=== PATIENT | male | born 1930 | race Caucasian/White ===

== ENCOUNTER 2017-11-19 13:49 | Emergency (ER) | payer MEDICARE, OTHER ==
[2017-11-19 14:02] VITALS: BP 120/58
--- NOTE | 2017-11-19 14:13 | EDM.PDOC ---
ED HPI GENERAL MEDICAL PROBLEM - General Chief Complaint: Chest Pain Stated Complaint: CHEST PAIN Time Seen by Provider: 11/19/17 14:08 Source of Information: Reports: Patient, Family (spouse) History Limitations: Reports: No Limitations - History of Present Illness INITIAL COMMENTS - FREE TEXT/NARRATIVE: 87-year-old male presents to the ED at the request of the walk-in clinic from [facility]. Patient was sent over when he presented to the clinic with a one -week history of left posterior chest wall pain under his shoulder blade on the left side. States pain is from most part but dull and achy discomfort but occasionally become sharp and stabbing. Denies cough or sputum production. Doesn 't feel any more short of breath than normal. Denies any hemoptysis. 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 He's had 4 stents placed in the past as well as one angioplasty many years ago without stenting. Last July he underwent coronary bypass surgery quadruple bypass. No falls or injuries to his ribs. No rashes apparent. Onset: Gradual Onset Date: 11/11/17 (Developed the pain about a week ago and it's been hanging on. Kept him awake a good portion of last night and that's the primary reason he sought medical care today.) Duration: Day(s):, Intermittent, Waxing/Waning Location: Reports: Chest (Left posterior chest under his shoulder blade.) Quality: Reports: Ache, Sharp (Occasionally sharp pain. Not necessarily with breathing.) Severity: Moderate (Rates it as a 1 and can be is from is a 5 at times) Improves with: Reports: Rest Worsens with: Reports: Movement (Movement of the left upper extremity and) Context: Denies: Activity, Lifting, Sick Contact, Trauma, Other Associated Symptoms: Reports: Chest Pain. Denies: Confusion, Cough (Left posterior chest pain), cough w sputum, Fever/Chills, Headaches, Loss of Appetite , Malaise, Rash, Seizure, Shortness of Breath, Syncope Treatments PRODUCTION ASSOCIATE: Reports: Other (see below) (None.) Chest Pain Score (Numeric/FACES): 5 - Related Data Allergies Allergy/AdvReac Type Severity Reaction Status Date / Time Penicillins Allergy Swelling Verified 11/19/17 14:01 Home Meds: Home Meds Carvedilol [Coreg] 3.125 mg PO BID 08/28/14 [History] Simvastatin [Zocor] 80 mg PO BEDTIME 08/28/14 [History] Tamsulosin [Flomax] 0.4 mg PO BID 08/28/14 [History] Docusate Sodium [Colace] 100 mg PO BID 10/20/14 [History] Aspirin 81 mg PO BEDTIME #30 tab.chew 10/27/14 [Rx] Bicalutamide [Casodex] 50 mg PO DAILY 09/06/16 [History] Cholecalciferol (Vitamin D3) [Vitamin D3] 1,000 unit PO DAILY 09/06/16 [History] Flaxseed Oil 1,000 mg PO BID 09/06/16 [History] [place]-3/DHA/Epa/Fish Oil [[place]-3 Fish Oil 1,000 MG Sfgl] 2,000 mg PO DAILY 02/11 [History] Ca Carbonate/Vitamin D3/Vit K [Citracal Soft Chew] 1 tab PO DAILY 11/19/17 [ History] Furosemide [Lasix] 20 mg PO DAILY #30 tab 11/19/17 [Rx] Losartan [Cozaar] 25 mg PO DAILY 11/19/17 [History] Past Medical History Cardiovascular History: Reports: Bypass (Quadruple bypass carried out in July 2016.), CAD, High Cholesterol, Hypertension, [place] (2. He's had both an inferior wall and anteroseptal myocardial infarction in the past.), PTCA, Stents (Has [address] for stents) Respiratory History: Reports: COPD (Mild COPD. Not on oxygen at home.) Gastrointestinal History: Reports: Chronic Constipation (Occasional: Problems with constipation) Genitourinary History: Reports: BPH, Prostate Disorder (Known prostate cancer. Nocturia usually 2) Musculoskeletal History: Reports: Back Pain, Chronic (Mild chronic low back pain. Sometimes shoulders and neck as well.), Osteoarthritis, Osteoporosis - Past Surgical History Other Cardiovascular Surgeries/Procedures: PCI in 2005 Other Male Surgeries/Procedures: on flomax Other Musculoskeletal Surgeries/Procedures:: s/p right hip arthroplasty. Social & Family History - Tobacco Use Smoking Status *Q: Unknown Ever Smoked - Caffeine Use Caffeine Use: Reports: Coffee - Recreational Drug Use Recreational Drug Use: No - Living Situation & Occupation Living situation: Reports: Occupation: Retired ED ROS GENERAL - Review of Systems Review Of Systems: See Below Constitutional: Denies: Fever, Chills, Malaise, Weakness, Fatigue, Decreased Appetite, Weight Loss HEENT: Reports: Glasses. Denies: Hearing Loss Respiratory: Denies: Shortness of Breath, Wheezing, Pleuritic Chest Pain, Cough Cardiovascular: Reports: Chest Pain (Posterior left chest pain inferior to the shoulder blade), Blood Pressure Problem, Dyspnea on Exertion, Edema (Mild in his lower extremities. Usually a mild ring around his socks.). Denies: Claudication, Lightheadedness, Orthopnea, Palpitations Endocrine: Reports: No Symptoms GI/Abdominal: Reports: Constipation : Reports: Frequency, Other (Nocturia usually 2. Known prostate cancer currently on anti-androgenic medication.) Musculoskeletal: Reports: Neck Pain (Intermittently intermittently), Shoulder Pain, Back Pain Skin: Reports: No Symptoms Neurological: Reports: No Symptoms Psychiatric: Reports: No Symptoms Hematologic/Lymphatic: Reports: No Symptoms Immunologic: Reports: No Symptoms ED EXAM, GENERAL - Physical Exam Exam: See Below Exam Limited By: No Limitations General Appearance: Alert, WD/WN, No Apparent Distress, Other (Vital signs reveal mild tachypnea 20 with O2 sats of 96% on room air.) Eye Exam: Bilateral Eye: Normal Inspection Neck: Normal Inspection, Supple, Non-Tender, Full Range of Motion. No: Lymphadenopathy (L), Lymphadenopathy (R) Respiratory/Chest: No Respiratory Distress, No Accessory Muscle Use, Rales (He has rales both bases. Perhaps a little worse on the left as compared to the right.). No: Respiratory Distress, Rhonchi, Wheezing, Stridor, Pleural Rub, Accessory Muscle Use Cardiovascular: Normal Peripheral Pulses, Regular Rate, Rhythm, No Gallop, No Murmur, Other (Well-healed midline sternotomy incision.) Peripheral Pulses: 1+: Carotid (L), Carotid (R), Brachial (L), Brachial (R) GI/Abdominal: Normal Bowel Sounds, Soft, Non-Tender, No Organomegaly, No Abnormal Bruit, No Mass, Pelvis Stable Back Exam: Normal Inspection, Decreased Range of Motion. No: CVA Tenderness (L) , CVA Tenderness (R) Extremities: Pedal Edema (He has trace pedal edema in both lower extremities to the ankles .) Neurological: Alert, Oriented, CN II-XII Intact, Normal Cognition, Normal Gait Psychiatric: Normal Affect, Normal Mood Skin Exam: Warm, Dry, Intact, Normal Color, No Rash EKG INTERPRETATION EKG Date: 11/19/17 Time: 13:57 Rhythm: NSR Rate (Beats/Min): 65 Gabbs: LAD-Left Gabbs Deviation (-50.) P-Wave: Present (With first-degree AV block) QRS: LBBB (He has Q-wave in V1 and near Q waves V2 V3 V4 compatible with an old anteroseptal myocardial infarction. Similarly there are Q waves in 3 and aVF compatible with an old inferior wall myocardial infarction. He has a left ventricular hypertrophy pattern. Incomplete left bundle branch block) ST-T: Other (Diffuse repolarization abnormality.) QT: Prolonged (Mildly prolonged) EKG Interpretation Comments: Abnormal ECG Course - Vital Signs Last Recorded V/S: Last Vital Signs Temp 35.8 C 11/19/17 13:58 Pulse 65 11/19/17 13:58 Resp 20 11/19/17 13:58 BP 120/58 L 11/19/17 14:02 Pulse Ox 96 11/19/17 13:58 - Orders/Labs/Meds Orders: Active Orders 24 hr Category Date Time Status EKG Documentation Completion [RC] ASDIRECTED Care 11/19/17 14:01 Active EKG Documentation Completion [RC] STAT Care 11/19/17 14:08 Active Chest 1V Frontal [CR] Stat Exams 11/19/17 14:08 Taken Furosemide [Lasix] Med 11/19/17 15:21 Once 20 mg PO ONETIME ONE EKG 12 Lead [EK] Stat Ther 11/19/17 14:01 Ordered Labs: Laboratory Tests 11/19/17 11/19/17 11/19/17 Range/Units 14:25 14:25 14:25 WBC 4.29 (4.23-9.07) K/mm3 RBC 3.92 L (4.63-6.08) M/mm3 Hgb 11.2 L (13.7-17.5) gm/L Hct 33.9 L (40.1-51.0) % MCV 86.5 (79.0-92.2) fl MCH 28.6 (25.7-32.2) pg MCHC 33.0 (32.2-35.5) g/dl RDW Std Deviation 39.9 (35.1-43.9) fL Plt Count 173 (163-337) K/mm3 MPV 9.9 (9.4-12.3) fl Neutrophils % (Manual) 52 (40-60) % Band Neutrophils % 0 (0-10) % Lymphocytes % (Manual) 36 (20-40) % Atypical Lymphs % 0 % Monocytes % (Manual) 9 (2-10) % Eosinophils % (Manual) 3 (0.8-7.0) % Basophils % (Manual) 0 L (0.2-1.2) Platelet Estimate Adequate Plt Morphology Comment Normal RBC Morph Comment Normal PT 11.0 (9.5-12.1) SECONDS INR 1.01 D-Dimer, Quantitative (0.19-0.50) mg/L Sodium 136 (136-145) mEq/L Potassium 4.4 (3.5-5.1) mEq/L Chloride 105 (98-107) mEq/L Carbon Dioxide 26 (21-32) mEq/L Anion Gap 9.4 (5-15) BUN 31 H (7-18) mg/dL Creatinine 1.5 H (0.7-1.3) mg/dL Est Cr Clr Drug Dosing 36.95 mL/min Estimated GFR (MDRD) 44 (>60) mL/min BUN/Creatinine Ratio 20.7 H (14-18) Glucose 123 H (83-115) mg/dL Calcium 9.0 (8.5-10.1) mg/dL Magnesium 2.3 (1.8-2.4) mg/dl Total Bilirubin 0.4 (0.2-1.0) mg/dL AST 22 (15-37) U/L ALT 18 (16-63) U/L Alkaline Phosphatase 72 (46-116) U/L CK-MB (CK-2) 1.2 (0-3.6) ng/ml Troponin I < 0.017 (0.00-0.056) ng/mL C-Reactive Protein < 0.2 (<1.0) mg/dL NT-Pro-B Natriuret Pep (0-450) pg/mL Total Protein 7.0 (6.4-8.2) g/dl Albumin 3.8 (3.4-5.0) g/dl Globulin 3.2 gm/dL Albumin/Globulin Ratio 1.2 (1-2) 11/19/17 11/19/17 Range/Units 14:25 14:25 WBC (4.23-9.07) K/mm3 RBC (4.63-6.08) M/mm3 Hgb (13.7-17.5) gm/L Hct (40.1-51.0) % MCV (79.0-92.2) fl MCH (25.7-32.2) pg MCHC (32.2-35.5) g/dl RDW Std Deviation (35.1-43.9) fL Plt Count (163-337) K/mm3 MPV (9.4-12.3) fl Neutrophils % (Manual) (40-60) % Band Neutrophils % (0-10) % Lymphocytes % (Manual) (20-40) % Atypical Lymphs % % Monocytes % (Manual) (2-10) % Eosinophils % (Manual) (0.8-7.0) % Basophils % (Manual) (0.2-1.2) Platelet Estimate Plt Morphology Comment RBC Morph Comment PT (9.5-12.1) SECONDS INR D-Dimer, Quantitative 0.87 H (0.19-0.50) mg/L Sodium (136-145) mEq/L Potassium (3.5-5.1) mEq/L Chloride (98-107) mEq/L Carbon Dioxide (21-32) mEq/L Anion Gap (5-15) BUN (7-18) mg/dL Creatinine (0.7-1.3) mg/dL Est Cr Clr Drug Dosing mL/min Estimated GFR (MDRD) (>60) mL/min BUN/Creatinine Ratio (14-18) Glucose (83-115) mg/dL Calcium (8.5-10.1) mg/dL Magnesium (1.8-2.4) mg/dl Total Bilirubin (0.2-1.0) mg/dL AST (15-37) U/L ALT (16-63) U/L Alkaline Phosphatase (46-116) U/L CK-MB (CK-2) (0-3.6) ng/ml Troponin I (0.00-0.056) ng/mL C-Reactive Protein (<1.0) mg/dL NT-Pro-B Natriuret Pep 509 H (0-450) pg/mL Total Protein (6.4-8.2) g/dl Albumin (3.4-5.0) g/dl Globulin gm/dL Albumin/Globulin Ratio (1-2) - Radiology Interpretation Free Text/Narrative:: 87-year-old male presents to the ED at the request of [facility] walk-in clinic. Patient presented there with a one-week history of left posterior chest pain. Pain is inferior to his left shoulder blade and states it's deep and hurts occasionally with deep breathing but mostly worsened by movement of his left upper extremity and shoulder. Patient has a strong family history of coronary disease and a strong history of coronary disease himself having had both inferior wall and anteroseptal wall myocardial infarction. His current for coronary stents and had quadruple bypass performed last in July. Currently on aspirin 81 mg daily only no antiplatelet inhibitors. Examination reveals crackles in both bases. Minimal JVD. No pain on palpation of the chest wall no rib head subluxation. Plan routine labs including cardiac markers and d-dimer. One view chest x-ray to be obtained. Note ECG reveals evidence of an old inferior wall and anteroseptal myocardial infarction with left ventricular hypertrophy pattern. No evidence of acute ischemic change. - Re-Assessments/Exams Free Text/Narrative Re-Assessment/Exam: 11/19/17 15:05 d-dimer came back at 0.87 which is appropriate for his age. X- ray portably reveals moderate cardiomegaly. Mild thoracic aortic ectasia appreciated. Lungs are mildly hyperinflated but diaphragms are not flattened. Costophrenic angles appear to be free of fluid. There is a diffuse mild vascular congestion pattern. 11/19/17 15:16 Labs are back revealing a normal white count at 4.29 with normal differential of 52% neutrophils and no bands. Hemoglobin is mildly decreased at 11.2 with hematocrit of 33.9. MCV is normal at 86.5. Platelet count is 173,000. PT is 11.0 with an INR 1.01. D-dimer 0.87. This would be considered normal for his age. Sodium is 136. Potassium is 4.4. Cord is 104 bicarbonate 26. And a gap is 9.4. B1 is mildly elevated at 31 with a creatinine of 1.5. Glucose is 123. Calcium normal at 9.0 magnesium normal at 2.3. Liver function is normal. Cardiac markers show CK-MB fraction 1.2 with a troponin I of less than 0.017. C-reactive protein is less than 0.2. BNP is mildly elevated at 509. 11/19/17 15:23 patient has mild congestive failure and I will put him on Lasix 20 mg once daily with first tablet provided in the ED. I'm not convinced that that's the cause of his left posterior chest pain. The history suggests that is more musculoskeletal in origin and likely arthritic changes in his thoracic spine to be causing his pain. He will use or continued to use Motrin on a when necessary basis as needed for pain. If pain gets worse or fails to improve over the next week to 10 days he will follow-up with his personal care physician Dr. Barnes. He was thoracic spine would be indicated at that time. Departure - Departure Time of Disposition: 15:24 Disposition: Home, Self-Care 01 Condition: Fair Clinical Impression: Mild congestive heart failure Left-sided thoracic back pain Qualifiers: Chronicity: acute Qualified Code(s): M54.6 - Pain in thoracic spine Prescriptions: Furosemide [Lasix] 20 mg PO DAILY #30 tab Referrals: Radha Barnes MD [Primary Care Provider] - Forms: ED Department Discharge Additional Instructions: Evaluation the emergency room today in regards to left-sided posterior chest pain for the better part of a week. The only positive finding on examination was a few crackles or evidence of fluid in the bases of both lungs on auscultation. Chest x-ray looked pretty good with mild enlargement of your heart but no significant accumulation of fluid . The visualized portions of the chest wall while the ribs and sternum look to be normal. There are some degenerative arthritic changes present in your mid thoracic spine which I believe is likely causing a good deal of your current pain in her left back. Lab work shows no evidence of blood clot along and certainly no evidence of heart related illness in terms of heart attack etc. it. It did reveal that there is a accumulation of fluid in your lungs but only mildly. However it is enough to take a water pill Lasix 20 mg once daily every morning to keep the fluid from building up in her lungs. I do not believe however that is the sole cause of your current left-sided back pain. I still agree with you that it's okay to take Motrin when necessary or as needed for back pain in the think is Musca skeletal in origin. If pain is still present in 7-10 days time and I would just follow-up with Dr. Barnes for further imaging of your - My Orders Last 24 Hours: My Active Orders 11/19/17 14:01 EKG Documentation Completion [RC] ASDIRECTED EKG 12 Lead [EK] Stat 11/19/17 14:08 EKG Documentation Completion [RC] STAT Chest 1V Frontal [CR] Stat 11/19/17 15:21 Furosemide [Lasix] 20 mg PO ONETIME ONE - Assessment/Plan Last 24 Hours: My Active Orders 11/19/17 14:01 EKG Documentation Completion [RC] ASDIRECTED EKG 12 Lead [EK] Stat 11/19/17 14:08 EKG Documentation Completion [RC] STAT Chest 1V Frontal [CR] Stat 11/19/17 15:21 Furosemide [Lasix] 20 mg PO ONETIME ONE
[2017-11-19] MEDS ORDERED: Furosemide 20 MG Tab PO ONE (15:21)
--- NOTE | 2017-11-20 07:39 | CR ---
Chest: Portable view of the chest was obtained. Comparison: Prior chest x-ray of 10/24/14. Heart is slightly enlarged. Tortuous thoracic aorta is seen. Sternotomy is noted for CABG. Lungs are clear with no acute parenchymal change. Bony structures are grossly intact. Impression: 1. Nothing acute is seen on portable chest x-ray. Incidental findings as noted above. Diagnostic code #2
== END 2017-11-19 15:41 | disposition home or self-care (01) ==
LOC: JD.ED 13:49
DX: I11.0 Hypertensive heart disease with heart failure (principal); I50.9 Heart failure, unspecified; M54.6 Pain in thoracic spine; Z95.5 Presence of coronary angioplasty implant and graft; Z95.1 Presence of aortocoronary bypass graft
CPT/HCPCS: 36415; 71045; 80053; 82553; 83735; 83880; 84484; 85007; 85027; 85379; 85610; 86140; 93005; 99285; A9270; 93010

== ENCOUNTER 2019-09-01 06:52 | Emergency (ER) | payer MEDICARE, OTHER ==
[2019-09-01 07:02] VITALS: BP 129/62; PULSE 61
[2019-09-01] MEDS ORDERED: Nitroglycerin/D5W 25 MG/250 ML BOTTLE IV SCH (07:15)
[2019-09-01] MEDS ORDERED: Sodium Chloride 0.9% 1,000 ML IV SCH (07:15)
--- NOTE | 2019-09-01 07:17 | EDM.PDOC ---
ED HPI GENERAL MEDICAL PROBLEM - General Chief Complaint: Chest Pain Stated Complaint: CHEST PAIN Time Seen by Provider: 09/01/19 07:02 Source of Information: Reports: Patient History Limitations: Reports: No Limitations - History of Present Illness INITIAL COMMENTS - FREE TEXT/NARRATIVE: 88-year-old male presents to the ED with diffuse right chest wall pain radiating to his right shoulder and right superior posterior right shoulder in the distribution of the trapezius muscle. Pain also radiates down the right arm towards the wrist. Pain radiates through to his back and infrascapular area. No pleuritic component of pain it is described as a deep aching pressure discomfort. It is been present since 0200 hrs. this morning. Patient has a history of coronary disease having had triple bypass carried out 3 years ago. He had a previous angioplasty with no stent placement many years ago. To my knowledge she is not taking any anticoagulants. He took 4 aspirins this mo rning. He has not taken any nitroglycerin. He denies cough or sputum production. Denies fever or chills. No recent changes to any of his medications. Associated diaphoresis and mild nausea without any vomiting. Currently rates his pain as 2 out of 10. States at home it was about 5 out of 10. Onset: Today, Sudden Onset Date: 09/01/19 Onset Time: 02:00 Duration: Hour(s): Location: Reports: Chest (Right chest primarily upper rating towards the right shoulder and upper back and mid back under the shoulder blade.), Back (Pain in the distribution of the trapezius muscle superior shoulder and down the back inferior to the right shoulder blade. Or under the shoulder blade.), Upper Extremity, Right (And radiates into his right shoulder and down the right arm towards his hand.) Quality: Reports: Ache, Pressure (Deep aching pressure discomfort), Other (No pleuritic pain) Severity: Moderate Improves with: Reports: None Worsens with: Reports: None Context: Denies: Activity, Exercise, Lifting, Sick Contact, Trauma, Other Associated Symptoms: Reports: Chest Pain. Denies: No Other Symptoms, Confusion, Cough, cough w sputum, Diaphoresis, Fever/Chills, Headaches, Loss of Appetite, Malaise, Nausea/Vomiting, Rash, Seizure, Shortness of Breath, Syncope, Weakness Treatments [employer]: Reports: Aspirin Right Shoulder Pain Score (Numeric/FACES): 2 - Related Data Allergies Allergy/AdvReac Type Severity Reaction Status Date / Time Penicillins Allergy Severe Swelling Verified 09/01/19 07:02 Home Meds: Home Meds Carvedilol [Coreg] 3.125 mg PO BID 08/28/14 [History] Simvastatin [Zocor] 80 mg PO BEDTIME 08/28/14 [History] Bicalutamide [Casodex] 50 mg PO DAILY 09/06/16 [History] Cholecalciferol (Vitamin D3) [Vitamin D3] 1,000 unit PO DAILY 09/06/16 [History] Flaxseed Oil 1,000 mg PO BID 09/06/16 [History] [place]-3/DHA/Epa/Fish Oil [[place]-3 Fish Oil 1,000 MG Sfgl] 2,000 mg PO DAILY 09/06/16 [History] Calcium Carb/Vitamin D3/Vit K1 [Citracal Soft Chew] 1 tab PO DAILY 11/19/17 [History] Losartan [Cozaar] 25 mg PO DAILY 11/19/17 [History] Aspirin 325 mg PO BEDTIME 08/23/18 [History] Past Medical History HEENT History: Reports: Impaired Vision Cardiovascular History: Reports: Bypass, CAD, High Cholesterol, Hypertension, [place], PTCA, Stents Respiratory History: Reports: COPD Gastrointestinal History: Reports: Chronic Constipation Genitourinary History: Reports: BPH, Prostate Disorder Musculoskeletal History: Reports: Back Pain, Chronic, Osteoarthritis, Osteoporosis Neurological History: Reports: None Psychiatric History: Reports: None Endocrine/Metabolic History: Reports: None Hematologic History: Reports: None Immunologic History: Reports: None Oncologic (Cancer) History: Reports: Prostate Dermatologic History: Reports: None - Infectious Disease History Infectious Disease History: Reports: None - Past Surgical History Head Surgeries/Procedures: Reports: None Other Cardiovascular Surgeries/Procedures: PCI in 2006 Other Male Surgeries/Procedures: on flomax Other Musculoskeletal Surgeries/Procedures:: s/p right hip arthroplasty. Other Oncologic Surgeries/Procedures: Pt currently is being treated for prostate cancer. Pt states he had a few injections, and now it is being treated with pills. 08/23/18. Social & Family History - Family History Family Medical History: Noncontributory - Tobacco Use Smoking Status *Q: Never Smoker - Caffeine Use Caffeine Use: Reports: None - Recreational Drug Use Recreational Drug Use: No - Living Situation & Occupation Living situation: Reports: Occupation: Retired ED ROS GENERAL - Review of Systems Review Of Systems: See Below Constitutional: Reports: Malaise, Weakness, Fatigue. Denies: Fever, Chills, Decreased Appetite, Weight Loss HEENT: Reports: Glasses Respiratory: Denies: Shortness of Breath, Wheezing, Pleuritic Chest Pain, Cough, Sputum, Hemoptysis Cardiovascular: Reports: Chest Pain (Right chest pain primarily upper anterior chest. Rating through to the back in the distribution of the superior shoulder and trapezius muscle as well as under the shoulder blade and then down the right arm towards his right), Blood Pressure Problem. Denies: Claudication ( wrist.), Dyspnea on Exertion, Edema, Lightheadedness, Orthopnea, Palpitations Endocrine: Reports: Fatigue GI/Abdominal: Reports: No Symptoms : Reports: Frequency, Other Musculoskeletal: Reports: Back Pain, Joint Pain Skin: Reports: No Symptoms (Knees hips neck and shoulders at times.) Neurological: Reports: No Symptoms Psychiatric: Reports: No Symptoms Hematologic/Lymphatic: Reports: No Symptoms Immunologic: Reports: No Symptoms ED EXAM, GENERAL - Physical Exam Exam: See Below Exam Limited By: No Limitations General Appearance: Alert, WD/WN, No Apparent Distress, Other (Vital signs show temperature 36.2. Pulse 61 and sinus respiratory 17 BP 129/62 sats are 91% on room air. 94% on my last recording) Eye Exam: Bilateral Eye: Normal Inspection, Periorbital Changes Neck: Normal Inspection, Limited Range of Motion (Crepitus on lateral rotation.), Tender Lateral. No: Carotid Bruit, Lymphadenopathy (L), Lymphadenopathy (R) Respiratory/Chest: No Respiratory Distress (Bilateral cervical neck tenderness on palpation.), Lungs Clear, Normal Breath Sounds, No Accessory Muscle Use Cardiovascular: Normal Peripheral Pulses, Regular Rate, Rhythm, No Edema, No Gallop, No Murmur, No Rub, Other (Well-healed midline sternotomy incision.) Peripheral Pulses: 2+: Posterior Tibial (L), Posterior Tibial (R), Dorsalis Pedis (L), Dorsalis Pedis (R) GI/Abdominal: Normal Bowel Sounds, Soft, Non-Tender, No Organomegaly, No Abnormal Bruit, No Mass, Pelvis Stable (Male) Exam: No Hernia Back Exam: Normal Inspection, Full Range of Motion. No: CVA Tenderness (L), CVA Tenderness (R) Extremities: Normal Inspection, Normal Range of Motion, Non-Tender, No Pedal Edema, Other (No pain on firm palpation throughout the right trapezius muscle superiorly and full range of motion of his right shoulder.) Neurological: Alert, Oriented, CN II-XII Intact, Normal Cognition, No Motor/Sensory Deficits Psychiatric: Normal Affect, Normal Mood Skin Exam: Warm, Dry, Intact, Normal Color, No Rash EKG INTERPRETATION EKG Date: 09/01/19 Time: 06:55 Rhythm: NSR Rate (Beats/Min): 60 [place]: LAD-Left [place] Deviation (-56 degrees) P-Wave: Present (With first-degree AV block) QRS: Other (Nonspecific intraventricular conduction delay pattern. Left ventricular peritoneal pattern. 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 No signs of ischemia. Course - Vital Signs Last Recorded V/S: Last Vital Signs Temp 36.2 C 09/01/19 06:58 Pulse 61 09/01/19 06:58 Resp 17 09/01/19 06:58 BP 129/62 09/01/19 06:58 Pulse Ox 91 L 09/01/19 06:58 - Orders/Labs/Meds Labs: Laboratory Tests 09/01/19 09/01/19 09/01/19 Range/Units 07:04 07:04 07:04 WBC 5.33 (4.23-9.07) K/mm3 RBC 4.33 L (4.63-6.08) M/mm3 Hgb 12.2 L (13.7-17.5) gm/dl Hct 38.0 L (40.1-51.0) % MCV 87.8 (79.0-92.2) fl MCH 28.2 (25.7-32.2) pg MCHC 32.1 L (32.2-35.5) g/dl RDW Std Deviation 41.6 (35.1-43.9) fL Plt Count 176 (163-337) K/mm3 MPV 10.0 (9.4-12.3) fl Neut % (Auto) 53.8 (34.0-67.9) % Lymph % (Auto) 32.5 (21.8-53.1) % [place] % (Auto) 10.5 (5.3-12.2) % Eos % (Auto) 2.8 (0.8-7.0) Baso % (Auto) 0.4 (0.1-1.2) % Neut # (Auto) 2.87 (1.78-5.38) K/mm3 Lymph # (Auto) 1.73 (1.32-3.57) K/mm3 [place] # (Auto) 0.56 (0.30-0.82) K/mm3 Eos # (Auto) 0.15 (0.04-0.54) K/mm3 Baso # (Auto) 0.02 (0.01-0.08) K/mm3 PT 10.9 (9.7-12.0) SECONDS INR 1.00 APTT 27 (22-31) SECONDS D-Dimer, Quantitative (0.19-0.50) mg/L Sodium 139 (136-145) mEq/L Potassium 4.8 (3.5-5.1) mEq/L Chloride 104 (98-107) mEq/L Carbon Dioxide 25 (21-32) mEq/L Anion Gap 14.8 (5-15) BUN 25 H (7-18) mg/dL Creatinine 1.3 (0.7-1.3) mg/dL Est Cr Clr Drug Dosing 40.56 mL/min Estimated GFR (MDRD) 52 (>60) mL/min BUN/Creatinine Ratio 19.2 H (14-18) Glucose 116 H (83-115) mg/dL Calcium 9.2 (8.5-10.1) mg/dL Magnesium 2.1 (1.8-2.4) mg/dl Total Bilirubin 0.4 (0.2-1.0) mg/dL AST 17 (15-37) U/L ALT 17 (16-63) U/L Alkaline Phosphatase 70 (46-116) U/L CK-MB (CK-2) 1.0 (0-3.6) ng/ml Troponin I < 0.017 (0.00-0.056) ng/mL C-Reactive Protein 0.4 (<1.0) mg/dL NT-Pro-B Natriuret Pep (0-450) pg/mL Total Protein 6.8 (6.4-8.2) g/dl Albumin 3.7 (3.4-5.0) g/dl Globulin 3.1 gm/dL Albumin/Globulin Ratio 1.2 (1-2) Urine Color (Yellow) Urine Appearance (Clear) Urine pH (5.0-8.0) Ur Specific [place] (1.005-1.030) Urine Protein (Negative) Urine Glucose (UA) (Negative) Urine Ketones (Negative) Urine Occult Blood (Negative) Urine Nitrite (Negative) Urine Bilirubin (Negative) Urine Urobilinogen (0.2-1.0) Ur Leukocyte Esterase (Negative) Urine RBC (0-5) /hpf Urine WBC (0-5) /hpf Ur Epithelial Cells (0-5) /hpf Urine Bacteria (FEW) /hpf Urine Mucus (FEW) /hpf 09/01/19 09/01/19 09/01/19 Range/Units 07:04 07:04 09:22 WBC (4.23-9.07) K/mm3 RBC (4.63-6.08) M/mm3 Hgb (13.7-17.5) gm/dl Hct (40.1-51.0) % MCV (79.0-92.2) fl MCH (25.7-32.2) pg MCHC (32.2-35.5) g/dl RDW Std Deviation (35.1-43.9) fL Plt Count (163-337) K/mm3 MPV (9.4-12.3) fl Neut % (Auto) (34.0-67.9) % Lymph % (Auto) (21.8-53.1) % [place] % (Auto) (5.3-12.2) % Eos % (Auto) (0.8-7.0) Baso % (Auto) (0.1-1.2) % Neut # (Auto) (1.78-5.38) K/mm3 Lymph # (Auto) (1.32-3.57) K/mm3 [place] # (Auto) (0.30-0.82) K/mm3 Eos # (Auto) (0.04-0.54) K/mm3 Baso # (Auto) (0.01-0.08) K/mm3 PT (9.7-12.0) SECONDS INR APTT (22-31) SECONDS D-Dimer, Quantitative 0.73 H (0.19-0.50) mg/L Sodium (136-145) mEq/L Potassium (3.5-5.1) mEq/L Chloride (98-107) mEq/L Carbon Dioxide (21-32) mEq/L Anion Gap (5-15) BUN (7-18) mg/dL Creatinine (0.7-1.3) mg/dL Est Cr Clr Drug Dosing mL/min Estimated GFR (MDRD) (>60) mL/min BUN/Creatinine Ratio (14-18) Glucose (83-115) mg/dL Calcium (8.5-10.1) mg/dL Magnesium (1.8-2.4) mg/dl Total Bilirubin (0.2-1.0) mg/dL AST (15-37) U/L ALT (16-63) U/L Alkaline Phosphatase (46-116) U/L CK-MB (CK-2) (0-3.6) ng/ml Troponin I (0.00-0.056) ng/mL C-Reactive Protein (<1.0) mg/dL NT-Pro-B Natriuret Pep 497 H (0-450) pg/mL Total Protein (6.4-8.2) g/dl Albumin (3.4-5.0) g/dl Globulin gm/dL Albumin/Globulin Ratio (1-2) Urine Color Yellow (Yellow) Urine Appearance Clear (Clear) Urine pH 5.5 (5.0-8.0) Ur Specific [place] 1.025 (1.005-1.030) Urine Protein Negative (Negative) Urine Glucose (UA) Negative (Negative) Urine Ketones Negative (Negative) Urine Occult Blood Negative (Negative) Urine Nitrite Negative (Negative) Urine Bilirubin Negative (Negative) Urine Urobilinogen 0.2 (0.2-1.0) Ur Leukocyte Esterase Negative (Negative) Urine RBC 0-5 (0-5) /hpf Urine WBC 0-5 (0-5) /hpf Ur Epithelial Cells Not seen (0-5) /hpf Urine Bacteria Not seen (FEW) /hpf Urine Mucus Few (FEW) /hpf Meds: Medications Discontinued Medications Generic Name Dose Route Start Last Admin Trade Name Freq PRN Reason Stop Dose Admin Furosemide 40 mg 09/01/19 08:10 09/01/19 08:18 Lasix IVPUSH 09/01/19 08:11 40 mg NOW ONE Administration Hydromorphone HCl 0.5 mg 09/01/19 07:22 09/01/19 07:37 Dilaudid IVPUSH 09/01/19 07:23 Not Given ONETIME ONE Sodium Chloride 1,000 mls @ 75 mls/hr 09/01/19 07:15 09/01/19 07:35 Normal Saline IV 75 mls/hr ASDIRECTED ETHAN Administration Nitroglycerin/Dextrose 25 mg in 250 mls @ 3 mls/hr 09/01/19 07:15 09/01/19 07:35 Nitroglycerin 25 Mg/D5w 250 Ml IV 5 mcg/min TITRATE ETHAN 3 mls/hr Administration Protocol 5 MCG/MIN Ketorolac Tromethamine 30 mg 09/01/19 08:15 09/01/19 08:17 Toradol IVPUSH 30 mg ONETIME ETHAN Administration Ondansetron HCl 4 mg 09/01/19 07:23 09/01/19 07:35 Zofran IVPUSH 09/01/19 07:24 4 mg ONETIME ONE Administration - Radiology Interpretation Free Text/Narrative:: 88-year-old male presents to the ED with awakening from sleep with diffuse right anterior chest pain primarily right upper anterior chest pain rating up into the superior right shoulder in the distribution of the trapezius muscle and underneath his right shoulder blade radiating down the arm towards his right wrist. Associated diaphoresis mild nausea without any vomiting. Patient has known coronary disease with previous triple bypass 3 years ago prior to that he had an angioplasty with no stent placement. Is currently not on any anticoagulants other than aspirin. He did take 4 baby aspirin's this morning. Plan nitroglycerin 10 mg IV per hour. We will give Dilaudid 0.5 mg IV and Zofran 4 mg IV for pain relief. ECG does not show any signs of acute ischemia. 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 Plan chest x-ray routine labs including cardiac markers and d-dimer. - Re-Assessments/Exams Free Text/Narrative Re-Assessment/Exam: 09/01/19 07:57 portable chest x-ray reveals moderate cardiomegaly. Mild diffuse vascular congestion pattern with no pleural effusion. Evidence of previous sternotomy with wire closure present. 09/01/19 08:04 White count is normal at 5.33. Differential is 54% neutrophils on the auto differential. Hemoglobin is 12.12 with hematocrit of 38.0. Platelet count 176,000. PT is 10.9 with an INR of 1.0 PTT is 27 with a d-dimer is slightly elevated at 0.73. This is considered normal for the patient's age. Sodium 139 with a potassium of 4.8. Chloride 104 with a bicarb of 25. Anion gap is 14.8. BUN is 25 with a creatinine of 1.3. Glucose is 116. Calcium is 9.2. Magnesium is 2.1. Liver function normal. CK-MB fraction is 1.0 with a troponin I of less than 0.017. C-reactive protein is 0.4 BNP is elevated at 497. Total protein 6.8 with an albumin fraction of 3.7. Upon review he still does have significant pain on movement of his shoulder due to rotator cuff disease. Will give Toradol 30 mg IV. Lasix 40 mg IV. Nitroglycerin drip will be discontinued. Patient has little to no pain other than right shoulder at this solo 09/01/19 09:19 Urinalysis came back negative as well. Departure - Departure Time of Disposition: 13:20 Disposition: Home, Self-Care 01 Reason for Transfer *Q: Other Condition: Fair Clinical Impression: Non-cardiac chest pain, Mild congestive heart failure, Right anterior shoulder pain Instructions: Heart Failure, Self Care, Musculoskeletal Pain Referrals: Radha Barnes MD [Primary Care Provider] - Forms: ED Department Discharge Additional Instructions: Evaluation in the emergency room today in regards to awakening around 0200 hrs. this morning with diaphoresis and right upper anterior chest pain radiating to the right shoulder and superior shoulder and shoulder blade area. Pain radiated down the right arm. Chest x-ray is clear other than a little bit of extra fluid within the lungs. Heart is a good size. Lab test show no evidence of heart related illness in terms of normal cardiac markers no signs of heart attack. They do reveal a mildly increased fluid buildup within the lungs. This is mild congestive heart failure. I believe pain is primarily coming from the tendons within the right shoulder. You were given Toradol 30 mg intravenously in the ED and Lasix 40 mg IV to help with some of the fluid off your lungs. You may continue all current medications as you have before. Follow up with personal care physician if problems persist. Sepsis Event Note (ED) - Evaluation Sepsis Screening Result: No Definite Risk - Focused Exam Vital Signs: Vital Signs Temp Pulse Resp BP Pulse Ox 09/01/19 06:58 36.2 C 61 17 129/62 91 L
[2019-09-01] MEDS ORDERED: HYDROmorphone 0.5 MG/0.5 ML Syringe IVPUSH ONE (07:22)
[2019-09-01] MEDS ORDERED: Ondansetron 4 MG/2 ML SDV IVPUSH ONE (07:23)
[2019-09-01] MEDS ORDERED: Furosemide 40 MG/4 ML VIAL IVPUSH ONE (08:10)
--- NOTE | 2019-09-01 08:12 | CR ---
Chest: Portable view of the chest was obtained. Comparison: Prior chest x-ray of 11/19/17. Heart is enlarged. Tortuous thoracic aorta is seen. Sternotomy is noted for CABG. Pulmonary vessels are minimally congested. Lungs otherwise are clear. Bony structures are grossly intact. Impression: 1. Stable cardiomegaly with prior CABG. 2. Pulmonary vessels are minimally congested. Diagnostic code #3 This report was dictated in MDT
[2019-09-01] MEDS ORDERED: Ketorolac 30 MG/ML SDV IVPUSH SCH (08:15)
== END 2019-09-01 09:35 | disposition home or self-care (01) ==
LOC: JD.ED 06:52
DX: R07.89 Other chest pain (principal); M25.511 Pain in right shoulder; I11.0 Hypertensive heart disease with heart failure; I50.9 Heart failure, unspecified; E78.00 Pure hypercholesterolemia, unspecified; I25.10 Atherosclerotic heart disease of native coronary artery without angina pectoris; M19.90 Unspecified osteoarthritis, unspecified site; I44.0 Atrioventricular block, first degree; Z88.0 Allergy status to penicillin; Z79.82 Long term (current) use of aspirin; Z79.899 Other long term (current) drug therapy; Z95.1 Presence of aortocoronary bypass graft
CPT/HCPCS: 36415; 71045; 80053; 81001; 82553; 83735; 83880; 84484; 85025; 85379; 85610; 85730; 86140; 96365; 96375; 99285; J1885; J1940; J2405; J3490; J7030; 93010; 99284

== ENCOUNTER 2020-08-12 19:37 | Day surgery (SDC) | payer MEDICARE, OTHER ==
[2020-08-12] MEDS ORDERED: Glucagon,Human Recombinant 1 MG Vial IVPUSH ONE (19:57)
[2020-08-12] MEDS ORDERED: Metoclopramide 10 MG/2 ML SDV IVPUSH ONE (19:57)
[2020-08-12] MEDS ORDERED: HYDROmorphone 0.5 MG/0.5 ML Syringe IVPUSH ONE (19:57)
--- NOTE | 2020-08-12 20:24 | EDM.PDOC ---
ED HPI GENERAL MEDICAL PROBLEM - General Chief Complaint: Gastrointestinal Problem Stated Complaint: OBJECT IN THROAT Time Seen by Provider: 08/12/20 19:45 Source of Information: Reports: Patient History Limitations: Reports: No Limitations - History of Present Illness INITIAL COMMENTS - FREE TEXT/NARRATIVE: 89-year-old male presents the emergency department this evening with complaints of food stuck in his throat. He states that approximately an hour and a half prior to arrival he was eating steak and fries when he felt the steak get stuck in his throat. He states he has been unable to drink or swallow anything since that happened. He states he has no difficulty breathing. He states he does have some discomfort to the area where he feels the food is stuck in his es ophagus. He states he has never had this happen in the past. He denies any other symptoms associated with this. - Related Data Allergies Allergy/AdvReac Type Severity Reaction Status Date / Time Penicillins Allergy Severe Swelling Verified 08/12/20 19:44 Home Meds: Home Meds Carvedilol [Coreg] 3.125 mg PO BID 08/28/14 [History] Simvastatin [Zocor] 80 mg PO BEDTIME 08/28/14 [History] Bicalutamide [Casodex] 50 mg PO DAILY 09/06/16 [History] Cholecalciferol (Vitamin D3) [Vitamin D3] 1,000 unit PO DAILY 09/06/16 [History] Flaxseed Oil 1,000 mg PO BID 09/06/16 [History] [place]-3/DHA/Epa/Fish Oil [[place]-3 Fish Oil 1,000 MG Sfgl] 2,000 mg PO DAILY 09/06/16 [History] Calcium Carb/Vitamin D3/Vit K1 [Citracal Soft Chew] 1 tab PO DAILY 11/19/17 [History] Losartan [Cozaar] 25 mg PO DAILY 11/19/17 [History] Aspirin 325 mg PO BEDTIME 08/23/18 [History] Past Medical History HEENT History: Reports: Impaired Vision Cardiovascular History: Reports: Bypass, CAD, High Cholesterol, Hypertension, [place], PTCA, Stents Respiratory History: Reports: COPD Gastrointestinal History: Reports: Chronic Constipation Genitourinary History: Reports: BPH, Prostate Disorder Musculoskeletal History: Reports: Back Pain, Chronic, Osteoarthritis, Osteoporosis Neurological History: Reports: None Psychiatric History: Reports: None Endocrine/Metabolic History: Reports: None Hematologic History: Reports: None Immunologic History: Reports: None Oncologic (Cancer) History: Reports: Prostate Dermatologic History: Reports: None - Infectious Disease History Infectious Disease History: Reports: None - Past Surgical History Head Surgeries/Procedures: Reports: None Other Cardiovascular Surgeries/Procedures: PCI in 2006 Other Male Surgeries/Procedures: on flomax Other Musculoskeletal Surgeries/Procedures:: s/p right hip arthroplasty. Other Oncologic Surgeries/Procedures: Pt currently is being treated for prostate cancer. Pt states he had a few injections, and now it is being treated with pills. 08/23/18. Social & Family History - Family History Family Medical History: No Pertinent Family History - Tobacco Use Tobacco Use Status *Q: Never Tobacco User - Caffeine Use Caffeine Use: Reports: None - Recreational Drug Use Recreational Drug Use: No - Living Situation & Occupation Living situation: Reports: Occupation: Retired ED ROS GENERAL - Review of Systems Review Of Systems: Comprehensive ROS is negative, except as noted in HPI. ED EXAM, GENERAL - Physical Exam Exam: See Below Exam Limited By: No Limitations General Appearance: Alert, WD/WN, Mild Distress Ears: Normal External Exam, Hearing Grossly Normal Nose: Normal Inspection Throat/Mouth: Normal Inspection, Normal Lips, Normal Voice, No Airway Compromise Head: Atraumatic Neck: Normal Inspection, Supple Respiratory/Chest: No Respiratory Distress, Lungs Clear, Normal Breath Sounds, No Accessory Muscle Use, Chest Non-Tender Cardiovascular: Normal Peripheral Pulses, Regular Rate, Rhythm, No Edema, Systolic Murmur Peripheral Pulses: 2+: Radial (L), Radial (R) GI/Abdominal: Normal Bowel Sounds, Soft, Non-Tender, No Distention (Male) Exam: Deferred Rectal (Males) Exam: Deferred Back Exam: Normal Inspection Extremities: Normal Inspection, Normal Range of Motion, Non-Tender Neurological: Alert, Oriented, Normal Cognition Psychiatric: Normal Affect, Normal Mood Skin Exam: Warm, Dry, Intact, Normal Color, No Rash Lymphatic: No Adenopathy Course - Vital Signs Text/Narrative:: Again, patient presents with steak stuck in his throat. This happened about an hour and a half prior to arrival. Upon assessment the patient is awake and alert and does not have any difficulty breathing. He does appear slightly uncomfortable and is unable to swallow his secretions. He states he is unable to drink and keep any fluids down as it comes right back up. I had discussed the case with Dr. Perez prior to evaluating the patient and he recommended I give the patient 0.5 mg of Dilaudid and 7.5 mg of Reglan. Wait 15 minutes then give glucagon 1 mg IV. After approximately 1 minute we will see if the patient can drink clear soda. If this does not work we will likely have to call in the surgeon on-call, Dr. Luciano to surgically remove the food bolus. Last Recorded V/S: Last Vital Signs Temp 100.9 F H 08/13/20 05:48 Pulse 79 08/13/20 09:16 Resp 14 08/13/20 09:16 BP 116/55 L 08/13/20 05:48 Pulse Ox 91 L 08/13/20 09:16 - Orders/Labs/Meds Meds: Medications Discontinued Medications Generic Name Dose Route Start Last Admin Trade Name Freq PRN Reason Stop Dose Admin Ephedrine Sulfate Confirm 08/12/20 21:42 Ephedrine 50 Mg/Ml Sdv Administered 08/12/20 21:43 Dose 50 mg .ROUTE .STK-MED ONE Fentanyl Confirm 08/12/20 21:25 Fentanyl 100 Mcg/2 Ml Sdv Administered 08/12/20 21:26 Dose 100 mcg .ROUTE .STK-MED ONE Fentanyl 50 mcg 08/12/20 22:59 Fentanyl 100 Mcg/2 Ml Sdv IVPUSH Q5M PRN Pain Glucagon 1 mg 08/12/20 19:57 08/12/20 20:20 Glucagon,Human Recombinant 1 Mg Vial IVPUSH 08/12/20 19:58 1 mg ONETIME ONE Administration Hydromorphone HCl 0.5 mg 08/12/20 19:57 08/12/20 20:04 Hydromorphone 0.5 Mg/0.5 Ml Syringe IVPUSH 08/12/20 19:58 0.5 mg ONETIME ONE Administration Lidocaine HCl Confirm 08/12/20 21:26 Xylocaine-Mpf 1% Administered 08/12/20 21:27 Dose 4 mls @ as directed .ROUTE .STK-MED ONE Metoclopramide HCl 7.5 mg 08/12/20 19:57 08/12/20 20:03 Metoclopramide 10 Mg/2 Ml Sdv IVPUSH 06/17/21 19:58 7.5 mg ONETIME ONE Administration Propofol Confirm 08/12/20 21:25 Propofol 200 Mg/20 Ml Sdv Administered 08/12/20 21:26 Dose 200 mg .ROUTE .STK-MED ONE - Re-Assessments/Exams Free Text/Narrative Re-Assessment/Exam: 08/12/20 20:38 And is unable to tolerate swallowing any beverages. States he does not feel like the food has moved down his esophagus at all. I have phoned Dr. Luciano and he has agreed to come in and do an upper endoscopy on the patient. He requests that we call in the OR crew right away. Departure - Departure Time of Disposition: 21:40 Disposition: DC/Tfer to [facility] Condition: Good Clinical Impression: Esophagus, foreign body Qualifiers: Encounter type: initial encounter Qualified Code(s): T18.108A - Unspecified foreign body in esophagus causing other injury, initial encounter - Discharge Information Sepsis Event Note (ED) - Evaluation Sepsis Screening Result: No Definite Risk
--- NOTE | 2020-08-12 21:04 | PCM.HP.2 ---
H&P History of Present Illness - General Date of Service: 08/12/20 Admit Problem/Dx: Admission Diagnosis/Problem Admission Diagnosis/Problem Foreign body in esophagus Source of Information: Patient History Limitations: Reports: No Limitations - History of Present Illness Initial Comments - Free Text/Narative: Mr. Villasenor is an 89 yo man who was eating steak for dinner about two hours ago and now has esophageal food impaction- he has been having discomfort with inability to swallow oral secretions or water. This has never happened to him before. - Related Data Allergies/Adverse Reactions: Allergies Allergy/AdvReac Type Severity Reaction Status Date / Time Penicillins Allergy Severe Swelling Verified 08/12/20 19:44 Home Medications: Home Meds Carvedilol [Coreg] 3.125 mg PO BID 08/28/14 [History] Simvastatin [Zocor] 80 mg PO BEDTIME 08/28/14 [History] Bicalutamide [Casodex] 50 mg PO DAILY 09/06/16 [History] Cholecalciferol (Vitamin D3) [Vitamin D3] 1,000 unit PO DAILY 09/06/16 [History] Flaxseed Oil 1,000 mg PO BID 09/06/16 [History] [place]-3/DHA/Epa/Fish Oil [[place]-3 Fish Oil 1,000 MG Sfgl] 2,000 mg PO DAILY 09/06/16 [History] Calcium Carb/Vitamin D3/Vit K1 [Citracal Soft Chew] 1 tab PO DAILY 11/19/17 [History] Losartan [Cozaar] 25 mg PO DAILY 11/19/17 [History] Aspirin 325 mg PO BEDTIME 08/23/18 [History] Past Medical History HEENT History: Reports: Impaired Vision Cardiovascular History: Reports: Bypass, CAD, High Cholesterol, Hypertension, [place], PTCA, Stents Respiratory History: Reports: COPD Gastrointestinal History: Reports: Chronic Constipation Genitourinary History: Reports: BPH, Prostate Disorder Musculoskeletal History: Reports: Back Pain, Chronic, Osteoarthritis, Osteoporosis Neurological History: Reports: None Psychiatric History: Reports: None Endocrine/Metabolic History: Reports: None Hematologic History: Reports: None Immunologic History: Reports: None Oncologic (Cancer) History: Reports: Prostate Dermatologic History: Reports: None - Infectious Disease History Infectious Disease History: Reports: None - Past Surgical History Head Surgeries/Procedures: Reports: None Other Cardiovascular Surgeries/Procedures: PCI in 2005 Other Male Surgeries/Procedures: on flomax Other Musculoskeletal Surgeries/Procedures:: s/p right hip arthroplasty. Other Oncologic Surgeries/Procedures: Pt currently is being treated for prostate cancer. Pt states he had a few injections, and now it is being treated with pills. 08/23/18. Social & Family History - Family History Family Medical History: No Pertinent Family History - Tobacco Use Tobacco Use Status *Q: Never Tobacco User - Caffeine Use Caffeine Use: Reports: None - Recreational Drug Use Recreational Drug Use: No - Living Situation & Occupation Living situation: Reports: Occupation: Retired H&P Review of Systems - Review of Systems: Review Of Systems: See Below General: Reports: No Symptoms HEENT: Reports: No Symptoms Pulmonary: Reports: No Symptoms Cardiovascular: Reports: No Symptoms Gastrointestinal: Reports: Other (food bolus stuck) Genitourinary: Reports: No Symptoms Musculoskeletal: Reports: No Symptoms Skin: Reports: No Symptoms Psychiatric: Reports: No Symptoms Neurological: Reports: No Symptoms Hematologic/Lymphatic: Reports: No Symptoms Immunologic: Reports: No Symptoms Exam - Exam Exam: See Below - Vital Signs Vital Signs: Last Vital Signs Temp 35.9 C L 08/12/20 19:41 Pulse 68 08/12/20 19:41 Resp 20 08/12/20 19:41 BP 169/79 H 08/12/20 19:41 Pulse Ox 94 L 08/12/20 19:41 Weight: 99.79 kg - Exam General: Alert, Oriented, Cooperative, Other (looks younger tahn stated age, appears rather healthy for 89) HEENT: Conjunctiva Clear Neck: Supple, Trachea Midline Lungs: Clear to Auscultation, Normal Respiratory Effort Cardiovascular: Regular Rate, Regular Rhythm GI/Abdominal Exam: Soft, Non-Tender Extremities: Normal Inspection Skin: Warm, Dry Psychiatric: Normal Mood Sepsis Event Note - Evaluation Sepsis Screening Result: No Definite Risk - Focused Exam Vital Signs: Vital Signs Temp Pulse Resp BP Pulse Ox 08/12/20 19:41 35.9 C L 68 20 169/79 H 94 L Problem List Initiated/Reviewed/Updated: Yes Orders Last 24hrs: Active Orders 24 hr Category Date Time Status Patient Status [ADT] Routine ADT 08/12/20 20:50 Active Schedule Procedure [COMM] Stat Oth 08/12/20 20:51 Ordered Assessment/Plan Comment:: esophageal food impaction with steak bolus. Plan for therapeutic flexible endoscopy. - Mortality Measure Prognosis:: Good
--- NOTE | 2020-08-12 21:17 | PCM.PREANE ---
Preanesthetic Assessment - Procedure Proposed Procedure: therapeutic upper endoscopy - Anesthesia/Transfusion/Family Hx Anesthesia History: Prior Anesthesia Reaction (nausea) Transfusion History: Prior Transfusion Without Reaction - Review of Systems General: Fatigue, Malaise Pulmonary: No Symptoms Cardiovascular: No Symptoms Gastrointestinal: Difficulty Swallowing, Nausea, Vomiting Neurological: No Symptoms Other: Reports: None - Physical Assessment NPO Status Date: 08/12/20 NPO Status Time: 20:45 Vital Signs: Last Vital Signs Temp 35.9 C L 08/12/20 19:41 Pulse 68 08/12/20 19:41 Resp 20 08/12/20 19:41 BP 169/79 H 08/12/20 19:41 Pulse Ox 94 L 08/12/20 19:41 Height: 1.78 m Weight: 99.79 kg ASA Class: 3 Mental Status: Alert & Oriented x3 Airway Class: Mallampati = 2 Dentition: Reports: Implants (100% upper) Thyro-Mental Finger Breadths: 3 Mouth Opening Finger Breadths: 2 ROM/Head Extension: Full Lungs: Clear to Auscultation, Normal Respiratory Effort Cardiovascular: Regular Rate, Regular Rhythm - Allergies Allergies/Adverse Reactions: Allergies Allergy/AdvReac Type Severity Reaction Status Date / Time Penicillins Allergy Severe Swelling Verified 08/12/20 19:44 - Anesthesia Plan Pre-Op Medication Ordered: Beta Maritza Beta Maritza: Carvedilol Med Last Dose Date: 08/12/20 Med Last Dose Time: 08:00 - Acknowledgements Anesthesia Type Planned: General Anesthesia Pt an Appropriate Candidate for the Planned Anesthesia: Yes Alternatives and Risks of Anesthesia Discussed w Pt/Guardian: Yes Pt/Guardian Understands and Agrees with Anesthesia Plan: Yes PreAnesthesia Questionnaire HEENT History: Reports: Impaired Vision Cardiovascular History: Reports: Bypass, CAD, High Cholesterol, Hypertension, [place], PTCA, Stents Respiratory History: Reports: COPD Gastrointestinal History: Reports: Chronic Constipation Genitourinary History: Reports: BPH, Prostate Disorder Musculoskeletal History: Reports: Back Pain, Chronic, Osteoarthritis, Osteoporosis Neurological History: Reports: None Psychiatric History: Reports: None Endocrine/Metabolic History: Reports: None Hematologic History: Reports: None Immunologic History: Reports: None Oncologic (Cancer) History: Reports: Prostate Dermatologic History: Reports: None - Infectious Disease History Infectious Disease History: Reports: None - Past Surgical History Head Surgeries/Procedures: Reports: None Other Cardiovascular Surgeries/Procedures: PCI in 2005 Other Male Surgeries/Procedures: on flomax Other Musculoskeletal Surgeries/Procedures:: s/p right hip arthroplasty. Other Oncologic Surgeries/Procedures: Pt currently is being treated for prostate cancer. Pt states he had a few injections, and now it is being treated with pills. 08/23/18. - SUBSTANCE USE Tobacco Use Status *Q: Never Tobacco User Tobacco Use Within Last Twelve Months: No Second Hand Smoke Exposure: No Days Per Week of Alcohol Use: 0 Number of Drinks Per Day: 0 Total Drinks Per Week: 0 Recreational Drug Use History: No - HOME MEDS Home Medications: Home Meds Carvedilol [Coreg] 3.125 mg PO BID 08/28/14 [History] Simvastatin [Zocor] 80 mg PO BEDTIME 08/28/14 [History] Bicalutamide [Casodex] 50 mg PO DAILY 09/06/16 [History] Cholecalciferol (Vitamin D3) [Vitamin D3] 1,000 unit PO DAILY 09/06/16 [History] Flaxseed Oil 1,000 mg PO BID 09/06/16 [History] [place]-3/DHA/Epa/Fish Oil [[place]-3 Fish Oil 1,000 MG Sfgl] 2,000 mg PO DAILY 09/06/16 [History] Calcium Carb/Vitamin D3/Vit K1 [Citracal Soft Chew] 1 tab PO DAILY 11/19/17 [History] Losartan [Cozaar] 25 mg PO DAILY 11/19/17 [History] Aspirin 325 mg PO BEDTIME 08/23/18 [History] - CURRENT (IN HOUSE) MEDS Current Meds: Current Medications Discontinued Medications Glucagon (Glucagon,Human Recombinant 1 Mg Vial) 1 mg IVPUSH ONETIME ONE Stop: 08/12/20 19:58 Last Admin: 08/12/20 20:20 Dose: 1 mg Documented by: Hydromorphone HCl (Hydromorphone 0.5 Mg/0.5 Ml Syringe) 0.5 mg IVPUSH ONETIME ONE Stop: 08/12/20 19:58 Last Admin: 08/12/20 20:04 Dose: 0.5 mg Documented by: Metoclopramide HCl (Metoclopramide 10 Mg/2 Ml Sdv) 7.5 mg IVPUSH ONETIME ONE Stop: 08/12/20 19:58 Last Admin: 08/12/20 20:03 Dose: 7.5 mg Documented by:
[2020-08-12] MEDS ORDERED: fentaNYL 100 MCG/2 ML SDV ONE (21:25)
[2020-08-12] MEDS ORDERED: Propofol 200 MG/20 ML SDV ONE (21:25)
[2020-08-12] MEDS ORDERED: Succinylcholine/Sod PF 100 MG/5 ML SYRINGE IV ONE (21:26)
[2020-08-12] MEDS ORDERED: Lidocaine 1% 4 ML ONE (21:26)
[2020-08-12] MEDS ORDERED: ePHEDrine 50 MG/ML SDV ONE (21:42)
--- NOTE | 2020-08-12 22:56 | PCM.PRNOTE ---
- Free Text/Narrative Note: Date: 08/12/2020 Procedure: therapeutic upper endoscopy Indication: esophageal food impaction with steak, unable to clear secretions Endoscopist: Delvis Luciano MD Findings:obstructing food bolus consisting of steak and mashed potatoes in the distal esophagus. Piecemeal removal of meat was done until the impaction could be pushed forward into the stomach. On retroflexion, a large piece of steak was grasped and pulled into the stomach from the distal esophagus and herniated stomach. Detailed Report: The patient was taken to the endoscopy suite and positioned supine with the head of the bed raised. Time out was performed and general endotracheal anesthesia initiated. A bite block was placed and the endoscope inserted into the mouth. The esophagus was intubated. There was a fair amount of salivary secretions and mashed potatoes pooled in the esophagus. Distally, there was complete obstruction with an immobile food impaction. An overtube was then put in place. Tedious piecemeal removal using the tripod prongs, jumbo forceps, Leyva net, etc ensued, until the meat bolus was decimated enough that it could be pushed forward with the endoscope. The stomach was intubated. There was a small hiatal hernia noted. On retroflexion, a large piece of steak was seen hanging into the stomach from the esophagus. This was grasped with jumbo forceps and pulled into the stomach. Several additional passes were made with the scope, using copious irrigation, in order to clear all solid food from the esophagus. There was minor mucosal trauma to the distal esophagus but no evidence of serious injury. Air and fluid were suctioned from the stomach. The scope was withdrawn, followed by the overtube. The patient tolerated the procedure well.
[2020-08-12] MEDS ORDERED: fentaNYL 100 MCG/2 ML SDV IVPUSH PRN (22:59)
--- NOTE | 2020-08-12 23:00 | PCM.POSTAN ---
POST ANESTHESIA ASSESSMENT - MENTAL STATUS Mental Status: Alert, Oriented - VITAL SIGNS Vital Signs: Last Vital Signs Temp 35.9 C L 08/12/20 19:41 Pulse 68 08/12/20 19:41 Resp 20 08/12/20 19:41 BP 169/79 H 08/12/20 19:41 Pulse Ox 94 L 08/12/20 19:41 - RESPIRATORY Respiratory Status: Respiratory Rate WNL, Airway Patent, O2 Saturation Stable, Supplemental Oxygen - CARDIOVASCULAR CV Status: Pulse Rate WNL, Blood Pressure Stable - GASTROINTESTINAL GI Status: No Symptoms - PAIN Pain Score: 0 - POST OP HYDRATION Hydration Status: Adequate & Stable - OBSERVATIONS Free Text/Narrative:: no anesthesia complications noted
[2020-08-13 05:50] VITALS: BP 116/55
--- NOTE | 2020-08-13 07:29 | PCM48HPAN ---
Post Anesthesia Note - EVALUATION WITHIN 48HRS OF ANESTHETIC Vital Signs in Normal Range: Yes Patient Participated in Evaluation: Yes Respiratory Function Stable: Yes Airway Patent: Yes (rests in bed with oxygen on. ) Cardiovascular Function Stable: Yes Hydration Status Stable: Yes Pain Control Satisfactory: Yes Nausea and Vomiting Control Satisfactory: Yes Mental Status Recovered: Yes (no complaints.) Vital Signs: Last Vital Signs Temp 100.9 F H 08/13/20 05:48 Pulse 89 08/13/20 05:48 Resp 24 H 08/13/20 05:48 BP 116/55 L 08/13/20 05:48 Pulse Ox 95 08/13/20 05:48
--- NOTE | 2020-08-13 08:03 | PCM.DCSUM1 ---
Discharge Summary - Hospital Course Free Text/Narrative:: Stayed overnight for extended recovery after therapeutic upper endoscopy for esophageal food impaction. No complaints this morning, tolerating liquid diet. Temperature was 100.8 F this morning, with SpO2 around 89-91% without supplemental oxygen. Patient denies chest pain, coughing, or shortness of breath. This is all not unexpected after general anesthesia last night, with attendant post-procedure atelectasis. Plan for pulmonary toilet with IS. Continue dysphagia diet for one week. Appears appropriate for discharge to home this morning as planned. Reviewed risk of aspiration with patient and signs/symptoms to watch for. Patient may follow up in clinic if he would like to, but scheduled follow up is not necessary otherwise. Diagnosis: Stroke: No - Discharge Data Discharge Date: 08/13/20 Discharge Disposition: Home, Self-Care 01 Condition: Good - Referral to Home Health Primary Care Physician: Radha Barnes MD - Patient Instructions Diet: Mechanical Soft Notify Provider of: Fever, Increased Pain, Nausea and/or Vomiting - Discharge Plan *PRESCRIPTION DRUG MONITORING PROGRAM REVIEWED*: Not Applicable *COPY OF PRESCRIPTION DRUG MONITORING REPORT IN PATIENT CAT: Not Applicable Home Medications: Home Meds Carvedilol [Coreg] 3.125 mg PO BID 08/28/14 [History] Simvastatin [Zocor] 80 mg PO BEDTIME 08/28/14 [History] Bicalutamide [Casodex] 50 mg PO DAILY 09/06/16 [History] Cholecalciferol (Vitamin D3) [Vitamin D3] 1,000 unit PO DAILY 09/06/16 [History] Flaxseed Oil 1,000 mg PO BID 09/06/16 [History] [place]-3/DHA/Epa/Fish Oil [[place]-3 Fish Oil 1,000 MG Sfgl] 2,000 mg PO DAILY 09/06/16 [History] Calcium Carb/Vitamin D3/Vit K1 [Citracal Soft Chew] 1 tab PO DAILY 11/19/17 [History] Losartan [Cozaar] 25 mg PO DAILY 11/19/17 [History] Aspirin 325 mg PO BEDTIME 08/23/18 [History] Patient Handouts: Swallowed Foreign Body, Adult, [id number] Referrals: Radha Barnes MD [Primary Care Provider] - - Discharge Summary/Plan Comment DC Time >30 min.: No Discharge Summary/Plan Comment: Continue incentive spirometry at home for 48 hours. Soft, no-chew diet for one week. - Patient Data Vitals - Most Recent: Last Vital Signs Temp 38.3 C H 08/13/20 05:48 Pulse 89 08/13/20 05:48 Resp 24 H 08/13/20 05:48 BP 116/55 L 08/13/20 05:48 Pulse Ox 95 08/13/20 05:48 Weight - Most Recent: 99.79 kg I&O - Last 24 hours: Intake & Output 08/12/20 08/13/20 08/13/20 22:59 06:59 14:59 Intake Total 300 Output Total 1500 Balance -1200 Med Orders - Current: Current Medications Fentanyl (Fentanyl 100 Mcg/2 Ml Sdv) 50 mcg IVPUSH Q5M PRN PRN Reason: Pain Discontinued Medications Ephedrine Sulfate (Ephedrine 50 Mg/Ml Sdv) Confirm Administered Dose 50 mg .ROUTE .STK-MED ONE Stop: 08/12/20 21:43 Fentanyl (Fentanyl 100 Mcg/2 Ml Sdv) Confirm Administered Dose 100 mcg .ROUTE .STK-MED ONE Stop: 08/12/20 21:26 Glucagon (Glucagon,Human Recombinant 1 Mg Vial) 1 mg IVPUSH ONETIME ONE Stop: 08/12/20 19:58 Last Admin: 08/12/20 20:20 Dose: 1 mg Documented by: Hydromorphone HCl (Hydromorphone 0.5 Mg/0.5 Ml Syringe) 0.5 mg IVPUSH ONETIME ONE Stop: 08/12/20 19:58 Last Admin: 08/12/20 20:04 Dose: 0.5 mg Documented by: Lidocaine HCl (Xylocaine-Mpf 1%) Confirm Administered Dose 4 mls @ as directed .ROUTE .STK-MED ONE Stop: 08/12/20 21:27 Metoclopramide HCl (Metoclopramide 10 Mg/2 Ml Sdv) 7.5 mg IVPUSH ONETIME ONE Stop: 08/12/20 19:58 Last Admin: 08/12/20 20:03 Dose: 7.5 mg Documented by: Propofol (Propofol 200 Mg/20 Ml Sdv) Confirm Administered Dose 200 mg .ROUTE .STK-MED ONE Stop: 08/12/20 21:26
[2020-08-13 10:01] VITALS: PULSE 79
== END 2020-08-13 09:25 | disposition home or self-care (01) ==
LOC: JD.ED 19:37 → JD.SDS 20:50 → JD.MS 08-13 00:18 → JD.SDS 08-13 09:25
PROVIDERS: ATTEND Surgery
DX: T18.128A Food in esophagus causing other injury, initial encounter (principal); K44.9 Diaphragmatic hernia without obstruction or gangrene; I25.10 Atherosclerotic heart disease of native coronary artery without angina pectoris; E78.00 Pure hypercholesterolemia, unspecified; I10 Essential (primary) hypertension; I25.2 Old myocardial infarction; C61 Malignant neoplasm of prostate; M81.0 Age-related osteoporosis without current pathological fracture; Z88.0 Allergy status to penicillin; Z79.82 Long term (current) use of aspirin; Z79.899 Other long term (current) drug therapy; Z95.5 Presence of coronary angioplasty implant and graft
CPT/HCPCS: 43247; J0330; J1170; J1610; J2704; J2765; J3010; 00731; 99100; 99140; 99202; 99284

== ENCOUNTER 2020-08-22 15:17 | Emergency (ER) | payer MEDICARE, OTHER ==
[2020-08-22 15:31] VITALS: BP 118/56; PULSE 67
[2020-08-22] MEDS ORDERED: Lidocaine 1% 10 ML MDV INJECT ONE (15:37)
[2020-08-22] MEDS ORDERED: Diphtheria,Pertussis(Acell),Tetanus Vaccine 0.5 ML Syringe IM ONE (16:01)
--- NOTE | 2020-08-22 16:16 | EDM.PDOC ---
ED HPI GENERAL MEDICAL PROBLEM - General Chief Complaint: Laceration Stated Complaint: EYE LID LAC Time Seen by Provider: 08/22/20 15:23 Source of Information: Reports: Patient, RN Notes Reviewed History Limitations: Reports: No Limitations - History of Present Illness INITIAL COMMENTS - FREE TEXT/NARRATIVE: Patient is an 89-year-old male presenting to the emergency department with complaints of laceration above his left eye. Patient reports that he was in the garage and tripped on a piece of mud, causing him to fall and hit his head on the concrete. He does not report loss of consciousness. Denies any headache, vision changes, or vomiting. He is not currently on blood thinners. He is unsure when his last tetanus vaccination was. - Related Data Allergies Allergy/AdvReac Type Severity Reaction Status Date / Time Penicillins Allergy Severe Swelling Verified 08/22/20 15:31 Home Meds: Home Meds Carvedilol [Coreg] 3.125 mg PO BID 08/28/14 [History] Simvastatin [Zocor] 40 mg PO BEDTIME 08/28/14 [History] Bicalutamide [Casodex] 50 mg PO DAILY 09/06/16 [History] Cholecalciferol (Vitamin D3) [Vitamin D3] 1,000 unit PO DAILY 09/06/16 [History] Flaxseed Oil 1,000 mg PO BID 09/06/16 [History] [place]-3/DHA/Epa/Fish Oil [[place]-3 Fish Oil 1,000 MG Sfgl] 2,000 mg PO DAILY 09/06/16 [History] Calcium Carb/Vitamin D3/Vit K1 [Citracal Soft Chew] 1 tab PO DAILY 11/19/17 [History] Aspirin 325 mg PO BEDTIME 08/23/18 [History] Isosorbide Mononitrate [Imdur] 30 mg PO DAILY 08/22/20 [History] Tamsulosin [Flomax] 0.8 mg PO QPM 08/22/20 [History] Zinc 50 mg PO DAILY 08/22/20 [History] lisinopriL [Lisinopril] 2.5 mg PO DAILY 08/22/20 [History] Past Medical History HEENT History: Reports: Impaired Vision Cardiovascular History: Reports: Bypass, CAD, High Cholesterol, Hypertension, [place], PTCA, Stents Respiratory History: Reports: COPD Gastrointestinal History: Reports: Chronic Constipation Genitourinary History: Reports: BPH, Prostate Disorder Musculoskeletal History: Reports: Back Pain, Chronic, Osteoarthritis, Osteoporosis Neurological History: Reports: None Psychiatric History: Reports: None Endocrine/Metabolic History: Reports: None Hematologic History: Reports: None Immunologic History: Reports: None Oncologic (Cancer) History: Reports: Prostate Dermatologic History: Reports: None - Infectious Disease History Infectious Disease History: Reports: None - Past Surgical History Head Surgeries/Procedures: Reports: None Other Cardiovascular Surgeries/Procedures: PCI in 2006 Other Male Surgeries/Procedures: on flomax Other Musculoskeletal Surgeries/Procedures:: s/p right hip arthroplasty. Other Oncologic Surgeries/Procedures: Pt currently is being treated for prostate cancer. Pt states he had a few injections, and now it is being treated with pills. 08/23/18. Social & Family History - Family History Family Medical History: No Pertinent Family History - Tobacco Use Tobacco Use Status *Q: Never Tobacco User Second Hand Smoke Exposure: No - Caffeine Use Caffeine Use: Reports: Soda - Recreational Drug Use Recreational Drug Use: No - Living Situation & Occupation Living situation: Reports: Occupation: Retired ED ROS GENERAL - Review of Systems Review Of Systems: Comprehensive ROS is negative, except as noted in HPI. ED EXAM, SKIN/RASH Exam: See Below General Appearance: Alert, WD/WN, No Apparent Distress Eye Exam: Bilateral Eye: PERRL Respiratory/Chest: No Respiratory Distress, Lungs Clear, Normal Breath Sounds, No Accessory Muscle Use, Chest Non-Tender Cardiovascular: Normal Peripheral Pulses, Regular Rate, Rhythm, No Edema, No Gallop, No JVD, No Murmur, No Rub Neurological: Alert, Oriented, CN II-XII Intact, Normal Cognition, Normal Gait, Normal Reflexes, No Motor/Sensory Deficits Psychiatric: Normal Affect, Normal Mood Skin: Other (1 cm slightly gaping laceration above the left eyebrow. Superficial abrasion to mid forehead and bridge of nose.) ED SKIN PROCEDURES - Laceration/Wound Repair Left Lower Forehead Appearance: Subcutaneous Distal NVT: Neuro & Vascular Intact Anesthetic Type: Topical Local Anesthesia - Lidocaine (Xylocaine): 1% Plain Local Anesthetic Volume: 2cc Skin Prep: Chlorhexidine (Hibiciens), Providone-Iodine (Betadine), Saline, Sterile Drape Exploration/Debridement/Repair: Wound Explored, In a Bloodless Field, Explored to Base, No Foreign Material Found Closed with: Sutures Lac/Wound length In cm: 1 Suture Size: 5-0 # of Sutures: 3 Suture Type: Nylon Sterile Dressing Applied: Nurse Tetanus Status Addressed: Yes Complications: No Course - Vital Signs Last Recorded V/S: Last Vital Signs Temp 98.0 F 08/22/20 15:30 Pulse 67 08/22/20 15:30 Resp 20 08/22/20 15:30 BP 118/56 L 08/22/20 15:30 Pulse Ox 100 08/22/20 15:30 - Orders/Labs/Meds Orders: Active Orders 24 hr Category Date Time Status Vaccines to be Administered [RC] PER UNIT ROUTINE Care 08/22/20 16:01 Active Head wo Cont [CT] Stat Exams 08/22/20 16:02 Taken Meds: Medications Discontinued Medications Generic Name Dose Route Start Last Admin Trade Name Freq PRN Reason Stop Dose Admin Diphtheria/Tetanus/Acell Pertussis 0.5 ml 08/22/20 16:01 08/22/20 16:13 Diphtheria,Pertussis(Acell),Tetanus Vaccine 0.5 Ml Syringe IM 08/22/20 16:02 0.5 ml .ONCE ONE Administration Lidocaine HCl 10 ml 08/22/20 15:37 08/22/20 15:45 Lidocaine 1% 10 Ml Mdv INJECT 08/22/20 15:38 10 ml ONETIME ONE Administration - Re-Assessments/Exams Free Text/Narrative Re-Assessment/Exam: Patient is an 89-year-old male presenting to the emergency department with complaints of laceration above his left eyebrow. Reports he fell and hit his head in the garage. Did not lose consciousness. He is on blood thinners, neurologic exam is normal, however given his age, I have ordered CT scan of the head. He is unsure when his last tetanus vaccination was. He has agreed to receive 1 today. We will administer tetanus vaccination. Lidocaine has been ordered in preparation for suturing. 08/22/20 17:05 CT of the head shows no acute intracranial abnormalities. Laceration was closed with sutures. See procedure notes for closure. Discharge instructions as documented. Departure - Departure Time of Disposition: 17:06 Disposition: Home, Self-Care 01 Condition: Good Clinical Impression: Laceration - Discharge Information *PRESCRIPTION DRUG MONITORING PROGRAM REVIEWED*: No *COPY OF PRESCRIPTION DRUG MONITORING REPORT IN PATIENT CAT: No Instructions: Laceration Care, Adult Referrals: Radha Barnes MD [Primary Care Provider] - Forms: ED Department Discharge Additional Instructions: You were seen in the emergency department today for a laceration to your forehead. The wound was cleansed and closed with 3 sutures. These should stay intact for 5 days. After that time they may be removed in the clinic by a nurse. Keep the wound clean and dry. Wash with normal soap and water twice daily. Do not submerge the wound in water. Watch for signs of infection including increased redness, swelling, or purulent drainage. If these should occur, you should be seen either in the clinic or in the emergency department as antibiotic treatment may be needed. Return to the ER as needed. Sepsis Event Note (ED) - Evaluation Sepsis Screening Result: No Definite Risk - Focused Exam Vital Signs: Vital Signs Temp Pulse Resp BP Pulse Ox 08/22/20 15:30 98.0 F 67 20 118/56 L 100 - My Orders Last 24 Hours: My Active Orders 08/22/20 16:01 Vaccines to be Administered [RC] PER UNIT ROUTINE 08/22/20 16:02 Head wo Cont [CT] Stat - Assessment/Plan Last 24 Hours: My Active Orders 08/22/20 16:01 Vaccines to be Administered [RC] PER UNIT ROUTINE 08/22/20 16:02 Head wo Cont [CT] Stat
--- NOTE | 2020-08-23 08:55 | CT ---
Head CT Technique: Multiple axial sections through the brain were obtained. Intravenous contrast was not utilized. Reconstructed coronal and sagittal images were obtained. Comparison: Prior head CT study of 08/23/18. Findings: Ventricles along with basal cisterns and sulci over the convexities are mildly prominent. Minimal diminished density is seen within portions of the periventricular white matter which is most likely due to minimal small vessel ischemic demyelination change. No other abnormal parenchymal densities are seen. No evidence of intracranial hemorrhage. No midline shift or mass-effect is seen. Bone window settings were reviewed. Visualized mastoid sinuses and paranasal sinuses show nothing acute. Atherosclerotic calcification is seen within the carotid siphon. No acute calvarial abnormality is appreciated. Impression: 1. Senescent change as noted above. 2. No acute intracranial abnormality is appreciated. Diagnostic code #2 I agree with preliminary report from [facility], finalized on 08/22/20, 5:49 PM CDT, code 1
== END 2020-08-22 17:18 | disposition home or self-care (01) ==
LOC: JD.ED 15:17
DX: S01.81XA Laceration without foreign body of other part of head, initial encounter (principal); S00.31XA Abrasion of nose, initial encounter; I25.10 Atherosclerotic heart disease of native coronary artery without angina pectoris; E78.00 Pure hypercholesterolemia, unspecified; I10 Essential (primary) hypertension; J44.9 Chronic obstructive pulmonary disease, unspecified; M19.90 Unspecified osteoarthritis, unspecified site; Z23 Encounter for immunization; Z88.0 Allergy status to penicillin; Z79.82 Long term (current) use of aspirin; Z79.899 Other long term (current) drug therapy; W01.198A Fall on same level from slipping, tripping and stumbling with subsequent striking against other object, initial encounter; Y92.59 Other trade areas as the place of occurrence of the external cause
CPT/HCPCS: 12011; 70450; 70450-26; 90471; 90715; 99283; 99283-25